=== PATIENT | male | born 1975 | race Caucasian/White ===

== ENCOUNTER 2017-01-12 04:51 | Emergency (ER) | payer BC ==
--- NOTE | 2017-01-12 05:22 | EDM.PDOC ---
ED HPI ENT - General Chief Complaint: ENT Problem Stated Complaint: SICK [id number] Time Seen by Provider: 01/12/17 05:05 Source of Information: Reports: Patient History Limitations: Reports: No limitations - History of Present Illness INITIAL COMMENTS - FREE TEXT/NARRATIVE: c/o cold sx x 3 days with fever sore throat, productive cough and body aches. unable to sleep tonight for throat pain Trying OTC cold meds and not improving. - Related Data Allergies/ADRs: Allergies Allergy/AdvReac Type Severity Reaction Status Date / Time Penicillins Allergy Anaphylactic Verified 01/12/17 05:00 Shock Home Meds: Home Meds . [No Known Home Meds] 01/12/17 [History] Past Medical History - Past Health History Medical/Surgical History: Denies Medical/Surgical History Social & Family History - Family History Family Medical History: Noncontributory - Tobacco Use Smoking Status *Q: Former Smoker - Caffeine Use Caffeine Use: Reports: Coffee - Recreational Drug Use Recreational Drug Use: No ED ROS ENT - Review of Systems Review Of Systems: See Below Constitutional: Reports: fever, decreased appetite HEENT: Reports: Ear pain, Throat pain Respiratory: Reports: Cough Cardiovascular: Reports: No symptoms GI/Abdominal: Reports: No symptoms Musculoskeletal: Reports: other (generalized body aches) Skin: Reports: no symptoms Neurological: Reports: No Symptoms ED EXAM, ENT - Physical Exam Exam: See Below Exam Limited By: No limitations General Appearance: alert, moderate distress Eye Exam: bilateral eye: EOMI, PERRL Ears: normal external exam, TM erythema (bilateral) Nose: normal inspection Mouth/Throat: Throat pain, Other (posterior pharnyx red) Head: atraumatic, normocephalic Neck: full range of motion, lymphadenopathy (L), lymphadenopathy (R) Respiratory/Chest: no respiratory distress, lungs clear, normal breath sounds Cardiovascular: normal peripheral pulses GI/Abdominal: normal bowel sounds, soft Back: normal inspection Extremities: normal inspection Neurological: alert, oriented, normal cognition, normal gait Skin: Warm, Dry, Intact, Normal color Course - Vital Signs Last Recorded V/S: Last Vital Signs Temp 99.3 F 01/12/17 04:56 Pulse 94 01/12/17 04:56 Resp 16 01/12/17 04:56 BP 114/69 01/12/17 04:56 Pulse Ox 95 01/12/17 04:56 - Orders/Labs/Meds Orders: Active Orders 24 hr Category Date Time Status CULTURE STREP A CONFIRMATION [RM] Stat Lab 01/12/17 04:57 Results STREP SCRN A RAPID W CULT CONF [] Stat Lab 01/12/17 04:57 Results predniSONE Med 01/12/17 05:48 Once 20 mg PO ONETIME ONE Meds: Medications Discontinued Medications Generic Name Dose Route Start Last Admin Trade Name Jagdeep PRN Reason Stop Dose Admin Azithromycin 500 mg 01/12/17 05:47 Zithromax PO 01/12/17 05:48 ONETIME ONE Benzonatate 200 mg 01/12/17 05:47 Tessalon Perles PO 01/12/17 05:48 ONETIME ONE Departure - Departure Time of Disposition: 05:48 Disposition: Home, Self-Care 01 Condition: good Clinical Impression: Bronchitis Pharyngitis Qualifiers: Pharyngitis/tonsillitis etiology: unspecified etiology Qualified Code(s): J02.9 - Acute pharyngitis, unspecified Otitis Qualifiers: Laterality: bilateral Qualified Code(s): H66.93 - Otitis media, unspecified, bilateral Instructions: Pharyngitis, [id number] Forms: ED Department Discharge Additional Instructions: alternate tylenol and ibuprofen every 4-6 hours as needed for pain/ fever chloraseptic throat spray salt water gargles azithromycin 250mg daily x 4 days tessalon pearles 200mg every 8 hours s needed for cough - My Orders Last 24 Hours: My Active Orders 01/12/17 04:57 CULTURE STREP A CONFIRMATION [RM] Stat STREP SCRN A RAPID W CULT CONF [] Stat 01/12/17 05:48 predniSONE 20 mg PO ONETIME ONE - Assessment/Plan Last 24 Hours: My Active Orders 01/12/17 04:57 CULTURE STREP A CONFIRMATION [RM] Stat STREP SCRN A RAPID W CULT CONF [] Stat 01/12/17 05:48 predniSONE 20 mg PO ONETIME ONE
[2017-01-12] MEDS ORDERED: Azithromycin 250 MG Tab PO ONE (05:47)
[2017-01-12] MEDS ORDERED: Benzonatate 100 MG Cap PO ONE (05:47)
[2017-01-12] MEDS ORDERED: predniSONE 20 MG Tab PO ONE (05:48)
[2017-01-12 05:50] VITALS: BP 119/57
== END 2017-01-12 06:00 | disposition home or self-care (01) ==
LOC: DL.ED 04:51
DX: J40 Bronchitis, not specified as acute or chronic (principal); J02.9 Acute pharyngitis, unspecified; H66.93 Otitis media, unspecified, bilateral; Z88.0 Allergy status to penicillin; Z87.891 Personal history of nicotine dependence
CPT/HCPCS: 87081; 87430; 87804; 99283; A9270